=== PATIENT | male | born 1965 | race Caucasian/White ===

== ENCOUNTER 2023-12-29 08:48 | Emergency (ER) | payer OTHER, SELFPAY ==
[2023-12-29] VITALS (9 sets, daily range): BP systolic 116–158; BP diastolic 63–90; PULSE 55–75; RESP 10–25; O2SAT 95–100; BMI 25.0
--- NOTE | 2023-12-29 08:56 | DI.RAD.S_ITS ---
PROCEDURE: XR CHEST 1V INDICATIONS: chest pain TECHNIQUE: One view of the chest was acquired. COMPARISON: None. FINDINGS: Surgical changes and devices: None. Lungs and pleura: No pleural effusions. No dense consolidation. Mediastinum: Normal heart size Bones and chest wall: No acute abnormality on this radiograph. IMPRESSION: No acute radiographic abnormality. Dictated by: Jad Delgado M.D. on 12/29/2023 at 9:40 Approved by: Jad Delgado M.D. on 12/29/2023 at 9:41
--- NOTE | 2023-12-29 09:00 | ED_ITS ---
HPI - General Adult General Chief complaint: Chest Pain Stated complaint: CHEST PAIN Time Seen by Provider: 12/29/23 08:55 Source: patient Mode of arrival: Ambulatory Limitations: no limitations History of Present Illness HPI narrative: Patient is a 58-year-old male. No prior diagnosed medical problems. Takes no medications. Is here for evaluation of left-sided chest discomfort. He states that for the past month he has had occasional left-sided chest discomfort. He describes it as a dull pressure. Comes on suddenly. Lasts for less than a minute and then resolves. Does not seem to be associated with taking a deep breath or palpation or movement although he admits that he has not necessarily tried to do any of these things when the discomfort happens. It does not radiate anywhere. He has currently not feeling the symptoms. He states he woke up this morning approximately 3 hours ago with the discomfort. It seemed to be more persistent and more intense this morning which is why he came to the emergency department. It does have a significant family history of early coronary artery disease. He states he has had chest discomfort evaluated in the past at an outside facility with EKGs but not this particular discomfort that brought him in today. He does admit to being under quite a bit of stress. Review of Systems Review of Systems ROS Unobtainable: All systems reviewed & are unremarkable except as noted in HPI and below Patient History Social History Smoking Status: Never smoker Exam Initial Vital Signs Initial Vital Signs: Vital Signs Pulse Rate 74 12/29/23 09:02 Respiratory Rate 20 12/29/23 09:02 Blood Pressure 158/90 H 12/29/23 09:02 Pulse Oximetry 99 12/29/23 09:02 Oxygen Delivery Method Room Air 12/29/23 09:02 Const General: cooperative, comfortable and No ill appearing HENMT Head: normal to inspection and normocephalic Resp Effort & Inspection: normal respiratory effort Auscultation: clear to auscultation bilaterally Cardio Rate: regular rate Rhythm: regular rhythm GI Inspection: normal to inspection Skin General: no rashes or lesions noted Extrem General: No edema Psych Other: Anxious affect Scores HEART Score Heart Score history: Slightly Suspicious Heart Score EKG: Non-Specific repolarization disturbance Heart Score Age: 45-64 years old Heart Score risk factors: 1-2 risk factors Heart Score troponin: < or = to normal limit Heart Score Total: 3 Course Orders Ordered: ED Orders 12/29/23 08:56 XR chest 1V Stat 12/29/23 09:00 EKG-12 Lead Stat 12/29/23 09:10 Complete Blood Count AUTO DIFF Stat Comprehensive Metabolic Panel Stat Lipase Stat Troponin & CK Cardiac Panel Stat 12/29/23 11:14 Troponin & CK Cardiac Panel Stat 12/29/23 11:15 EKG-12 Lead Stat Vital Signs Vital signs: Vital Signs - 8 hr 12/29/23 09:02 12/29/23 09:07 12/29/23 09:30 Pulse Rate 74 75 68 Respiratory Rate 20 15 22 Blood Pressure 158/90 H Pulse Oximetry 99 100 Oxygen Delivery Method Room Air Room Air 12/29/23 09:30 12/29/23 10:00 12/29/23 10:00 Pulse Rate 65 Respiratory Rate 10 L Blood Pressure 132/72 124/69 Pulse Oximetry 100 Oxygen Delivery Method 12/29/23 10:19 12/29/23 10:19 12/29/23 10:30 Pulse Rate 62 59 L Respiratory Rate 24 12 Blood Pressure 131/67 Pulse Oximetry 95 100 Oxygen Delivery Method Room Air Room Air 12/29/23 10:30 12/29/23 11:00 12/29/23 11:00 Pulse Rate 61 Respiratory Rate 12 Blood Pressure 119/68 120/63 Pulse Oximetry 99 Oxygen Delivery Method 12/29/23 11:30 12/29/23 11:56 12/29/23 11:56 Pulse Rate 59 L 55 L Respiratory Rate 25 H Blood Pressure 116/65 Pulse Oximetry 100 100 Oxygen Delivery Method Room Air Room Air Medical Decision Making Lab Data Lab results reviewed: Yes I reviewed the patient's lab results. 12/29/23 09:10 12/29/23 09:10 Labs: Lab Results 12/29/23 12/29/23 Range/Units 09:10 11:14 WBC 4.6 (4.5-11.0) X10^3/uL RBC 4.47 L (4.5-5.9) X10^6/uL Hgb 15.0 (13.5-17.5) g/dL Hct 43.3 (41-53) % MCV 96.9 (80-100) fL MCH 33.6 (26-34) PG MCHC 34.6 (30-36) % RDW 12.9 (11.6-14.8) % Plt Count 224 (150-400) X10^3/uL Neut % (Auto) 61.2 (50-75) % Lymph % (Auto) 24.6 L (25-40) % [place] % (Auto) 9.5 (3-14) % Eos % (Auto) 4.0 (2-4) % Baso % (Auto) 0.7 (0-2) % Neut # (Auto) 2800 (5574-9854) /uL Lymph # (Auto) 1100 (3284-9391) /uL [place] # (Auto) 400 (0-900) /uL Eos # (Auto) 200 (0-450) /uL Baso # (Auto) 0 (0-100) /uL Sodium 138 (137-145) mmol/L Potassium 4.1 (3.4-5.1) mmol/L Chloride 104 (98-107) mmol/L Carbon Dioxide 26 (22-32) mmol/L BUN 14 (9-20) mg/dL Creatinine 0.87 (0.66-1.25) mg/dL Estimated GFR > 60 (>60) mL/min BUN/Creatinine Ratio 16.1 (6-22) Glucose 92 (70-100) mg/dL Calcium 9.8 (8.4-10.2) mg/dL Total Bilirubin 0.7 (0.2-1.3) mg/dL AST 22 (17-59) IU/L ALT 12 (<50) IU/L Alkaline Phosphatase 47 (38-126) U/L Total Creatine Kinase 48 L 43 L (55-170) U/L Troponin I < 0.012 < 0.012 (0.01-0.034) ng/mL Total Protein 7.8 (6.3-8.2) g/dL Albumin 4.5 (3.5-5.0) g/dL Globulin 3.3 (1.7-4.1) g/dL Albumin/Globulin Ratio 1.4 (1.0-2.8) Lipase 172 (23-300) U/L Imaging Data Chest x-ray: Radiologist's Impression: PROCEDURE: XR CHEST 1V INDICATIONS: chest pain TECHNIQUE: One view of the chest was acquired. COMPARISON: None. FINDINGS: Surgical changes and devices: None. Lungs and pleura: No pleural effusions. No dense consolidation. Mediastinum: Normal heart size Bones and chest wall: No acute abnormality on this radiograph. IMPRESSION: No acute radiographic abnormality. ECG Data Attestation: I personally reviewed and interpreted this ECG as follows: Interpretation: Sinus rhythm Normal axis Downsloping ST segment GSV AVF No ST elevations Normal QRS Repeat EKG Sinus bradycardia Ventricular rate of 53 Normal axis Normal QRS Normal QTC Nonspecific ST T wave changes Accept for rate relatively unchanged from prior EKG MDM Narrative Medical decision making narrative: 2- troponins. Asymptomatic here in the ER. Nonischemic EKG. I have a high suspicion that his symptoms are anxiety related does based on his description. Inform the patient that he should follow up with his primary doctor to discuss further workup of the chest discomfort and also his anxiety. He has a low risk heart score. He was given return precautions. He expressed understanding and agreement. Discharge Plan Departure Patient Disposition: Home Clinical Impression: Atypical chest pain, Anxiety Instructions: DI for Atypical Chest Pain Activity Restrictions/Additional Instructions: I do recommend that on Monday you contact your primary care doctor for a follow- up to discuss further evaluation. You can also talk with your primary doctor about potentially starting medications for your anxiety. Return to the emergency department for new or worsening symptoms. Referrals: Miscellaneous,MD Prabha [Primary Care Provider] - Stand Alone Forms: Patient Portal/API
[2023-12-29 09:27] LABS: Add Manual Diff / Slide Review NO; Basophils Absolute Auto 0 /uL (0-100); Basophils Percent Auto 0.7 % (0-2); Eosinophils Absolute Auto 200 /uL (0-450); Hematocrit 43.3 % (41-53); Lymphocytes Absolute Auto 1100 /uL (1100-4500); Lymphocytes Percent Auto 24.6 % (25-40); Mean Corpuscular HGB Conc 34.6 % (30-36); Mean Corpuscular Hemoglobin 33.6 PG (26-34); Mean Corpuscular Volume 96.9 fL (80-100); Monocytes Absolute Auto 400 /uL (0-900); Monocytes Percent Auto 9.5 % (3-14); Neutrophils Absolute Auto 2800 /uL (1500-7000); Neutrophils Percent Auto 61.2 % (50-75); Platelet Count 224 X10^3/uL (150-400); Red Blood Cell Count 4.47 X10^6/uL (4.5-5.9); Red Cell Distribution Width 12.9 % (11.6-14.8); White Blood Cell Count 4.6 X10^3/uL (4.5-11.0)
[2023-12-29 09:30] LABS: Alanine Aminotransferase 12 IU/L (<50); Albumin 4.5 g/dL (3.5-5.0); Albumin Globulin Ratio 1.4 (1.0-2.8); Alkaline Phosphatase 47 U/L (38-126); Aspartate Aminotransferase 22 IU/L (17-59); BUN Creatinine Ratio 16.1 (6-22); Bilirubin Total 0.7 mg/dL (0.2-1.3); Blood Urea Nitrogen 14 mg/dL (9-20); Calcium 9.8 mg/dL (8.4-10.2); Carbon Dioxide 26 mmol/L (22-32); Chloride 104 mmol/L (98-107); Creatine Kinase 48 U/L (55-170); Estimated Glomerular Filt Rate > 60 mL/min (>60); Globulin 3.3 g/dL (1.7-4.1); Glucose 92 mg/dL (70-100); HEMOLYSIS < 15 (0-50); Lipase 172 U/L (23-300); Potassium 4.1 mmol/L (3.4-5.1); Sodium 138 mmol/L (137-145); Total Protein 7.8 g/dL (6.3-8.2)
[2023-12-29 09:41] LABS: Troponin I < 0.012 ng/mL (0.01-0.034)
--- NOTE | 2023-12-29 09:42 | PC.NURSE ---
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 He is supposed to take his mom to a CT today regarding this diagnosis. Pt has had transient chest pain lasting less than a minute, multiple times a day, for over a month. Pt states history of muscle pain in his chest prior, denies history of heart attack. Pt's father after having multiple TIA's and SC's. He denies nausea, SOB, or lightheaded. Pt's capillary refill is sluggish and cold in his hands which is normal, per patient.
[2023-12-29 11:36] LABS: Creatine Kinase 43 U/L (55-170)
[2023-12-29 11:50] LABS: Troponin I < 0.012 ng/mL (0.01-0.034)
== END 2023-12-29 12:00 | disposition home or self-care (01) ==
PROVIDERS: Emergency Provider Emergency Medicine
DX: R07.89 Other chest pain (principal); R00.1 Bradycardia, unspecified; F41.9 Anxiety disorder, unspecified
CPT/HCPCS: 36415; 71045; 80053; 82550; 83690; 84484; 85025; 93005; 99284